=== PATIENT | male | born 1940 | race Caucasian/White ===

== ENCOUNTER 2017-06-24 09:02 | Day surgery (SDC) | payer MEDICARE ==
[2017-06-21 09:45] VITALS: BMI 22.6
[~2017-06-24 09:02] MED LIST: DEXAMETHASONE SOD PHOSPHATE 10 MG/ML 1 ML VIAL IV ONE; HEPARIN SODIUM,PORCINE 5,000 UNIT/ML 1 ML VIAL SQ ONE; HYDROmorphone 0.5 MG/0.5 ML SYRINGE IVP PRN; LIDOCAINE 1% 20 ML VIAL (10MG/ML) FOR IV START INTRADERMA PRN; MIDAZOLAM 2 MG/2 ML VIAL IV PRN; ONDANSETRON 4 MG/2 ML VIAL IVP ONE; Pre Op ABX Message 1 EACH MISC MISCELLANE ONE; SCOPOLAMINE 1.5MG/72HR PATCH TRANSDERM ONE
[2017-06-24 09:53] VITALS: TEMP 97.9
[2017-06-24] MEDS ORDERED: LIDOCAINE 1% 20 ML VIAL (10MG/ML) FOR IV START INTRADERMA ONE (10:07)
[2017-06-24] MEDS: LACTATED RINGERS 1,000 ML IV SCH ×2 (10:11→11:44)
--- NOTE | 2017-06-24 10:55 | P.GSHP ---
History of Present Illness H&P Date: 06/24/17 Chief Complaint: Right perianal skin lesion This is a 76-year-old male who presents today for excision of a right perianal skin lesion. Patient relates and itching and burning in his skin lesion. Past Medical History Past Medical History: GERD/Reflux, Hypertension Additional Past Medical History / Comment(s): sinus congestion History of Any Multi-Drug Resistant Organisms: None Reported Past Surgical History: Hernia Repair, Orthopedic Surgery Additional Past Surgical History / Comment(s): benign growth removed from stomach, colonoscopy, corrective eye surgery Saturnino. knee replacements Past Anesthesia/Blood Transfusion Reactions: No Reported Reaction Smoking Status: Former smoker - Past Family History Mother Family Medical History: No Reported History Medications and Allergies Home Medications Medication Instructions Recorded Confirmed Type Lisinopril-Hctz 10-12.5 mg 1 tab PO DAILY 06/21/17 06/21/17 History [Zestoretic 10-12.5] Pantoprazole [Protonix] 0 mg PO DAILY 06/21/17 06/21/17 History Simvastatin [Zocor] 20 mg PO HS 06/21/17 06/21/17 History diphenhydrAMINE HCL 50 mg PO DAILY PRN 06/21/17 06/24/17 History [Diphenhydramine HCl] traZODone HCL 50 mg PO HS 06/21/17 06/21/17 History Allergies Allergy/AdvReac Type Severity Reaction Status Date / Time No Known Allergies Allergy Verified 06/21/17 09:37 Surgical - Exam Vital Signs Temp Pulse Resp BP Pulse Ox 97.9 F 63 18 133/64 96 06/24/17 09:51 06/24/17 09:51 06/24/17 09:51 06/24/17 09:51 06/24/17 09:51 - General well developed, no distress - Eyes PERRL - ENT normal pinna - Neck no masses - Respiratory normal expansion - Cardiovascular Rhythm: regular - Abdomen Abdomen: soft, non tender - Rectum 7 mm right perianal skin lesion Assessment and Plan Assessment: Right perianal skin lesion. We'll perform excision.
[2017-06-24] MEDS ORDERED: fentaNYL (PF) 50 MCG/ML 2 ML AMP ONE (11:46)
[2017-06-24] MEDS ORDERED: PROPOFOL 10 MG/ML 20 ML VIAL IV ONE (11:46)
[2017-06-24] MEDS ORDERED: MIDAZOLAM 2 MG/2 ML VIAL ONE (11:46)
[2017-06-24] MEDS ORDERED: SODIUM CHLORIDE 0.9% 50 ML with ceFAZolin 1,000 MG IV ONE ×2 (11:56)
[2017-06-24] MEDS ORDERED: BUPIVACAIN-EPI 0.5%-1:200,000 30 ML VIAL SQ ONE ×2 (12:07)
--- NOTE | 2017-06-24 12:13 | P.OP ---
Date of Procedure: 06/24/17 Preoperative Diagnosis: Perianal skin lesion Postoperative Diagnosis: Perianal skin lesion Procedure(s) Performed: Excision of right perianal skin lesion Anesthesia: local Surgeon: Elder Turpin Pathology: other Condition: stable Disposition: PACU Description of Procedure: Patient's placed on the operating table in the prone position. He received IV sedation. His perineum was prepped and draped usual sterile fashion. The patient had a skin lesion on the right perianal area. This was anesthetized 1% local Xylocaine. Elliptical skin incision was made around the lesion and it was excised. The Bovie is using hemostasis. The skin was closed interrupted 3- 0 Monocryl suture. Patient was sent to recovery in stable condition.
[2017-06-24 12:22] VITALS: BP 114/55; PULSE 79; RESP 16
--- NOTE | 2017-07-01 09:11 | CDI ---
Dr. Harris An epidermal perianal cyst was excised from Mr Steve on 06/24/17. The size of the cyst excised is needed for proper reporting purposes. Please clarify: 0.5 cm -1.0 cm 1.1 - 2.0 cm 2.1 - 3.0 cm 3.1 - 4.0 cm Over 4.0 cm Please document your response in an addendum to your procedure note. Thank you for your time. BOBY Johnson If you have any questions, please contact Rain Hess, crm marketing manager, at [facility]
--- NOTE | 2017-07-04 07:58 | CDI ---
Dr. Turpin An epidermal perianal cyst was excised from Mr Steve on 06/24/17. The size of the cyst excised is needed for proper reporting purposes. Please clarify: 0.5 cm -1.0 cm 1.1 - 2.0 cm 2.1 - 3.0 cm 3.1 - 4.0 cm Over 4.0 cm Please document your response in an addendum to your procedure note. Thank you for your time. BOBY Johnson If you have any questions, please contact Rain Hess, coding assistant, at [facility]
--- NOTE | 2017-07-09 07:10 | CDI ---
Dr. Turpin An epidermal perianal cyst was excised from Mr Steve on 06/24/17. The size of the cyst excised is needed for proper reporting purposes. Please clarify: 0.5 cm -1.0 cm 1.1 - 2.0 cm 2.1 - 3.0 cm 3.1 - 4.0 cm Over 4.0 cm Please document your response in an addendum to your procedure note. Thank you for your time. BOBY Johnson If you have any questions, please contact Rain Hess, district operations manager, at [facility]
--- NOTE | 2017-07-17 14:57 | CDI ---
Dr. Turpin An epidermal perianal cyst was excised from Mr Steve on 06/24/17. The size of the cyst excised is needed for proper reporting purposes. Please clarify: 0.5 cm -1.0 cm 1.1 - 2.0 cm 2.1 - 3.0 cm 3.1 - 4.0 cm Over 4.0 cm Please document your response in an addendum to your procedure note. Thank you for your time. BOBY Johnson If you have any questions, please contact Rain Hess, manager validation, at [facility]
== END 2017-06-24 13:08 | disposition home or self-care (01) ==
LOC: OR 09:02
PROVIDERS: ATTEND Surgery
DX: L72.0 Epidermal cyst (principal); I10 Essential (primary) hypertension; E78.5 Hyperlipidemia, unspecified; K21.9 Gastro-esophageal reflux disease without esophagitis; Z87.891 Personal history of nicotine dependence; Z79.899 Other long term (current) drug therapy
CPT/HCPCS: 11402; 88304; J2250; J1644; J1100; J2405; J3010; J0690; J2704

== ENCOUNTER → 2017-07-08 | Outpatient (CLI) | payer MEDICARE ==
--- NOTE | 2017-07-08 13:01 | ECHOF ---
Referral Reason:R01.1 Murmur MEASUREMENTS -------- HEIGHT: 167.6 cm WEIGHT: 63.5 kg BP: 123/55 IVSd: 0.9 cm (0.6 - 1.1) LVIDd: 3.5 cm (3.9 - 5.3) LVPWd: 0.9 cm (0.6 - 1.1) IVSs: 1.5 cm LVIDs: 2.2 cm LVPWs: 1.6 cm LAESV Index (A-L): 16.35 ml/m Ao Diam: 2.9 cm (2.0 - 3.7) AV Cusp: 1.6 cm (1.5 - 2.6) LA Diam: 3.1 cm (2.7 - 3.8) MV EXCURSION: 10.759 mm (> 18.000) MV EF SLOPE: 88 mm/s (70 - 150) EPSS: 1.3 cm MV E Jose: 0.61 m/s MV DecT: 217 ms MV A Jose: 0.82 m/s MV E/A Ratio: 0.74 AV maxP.34 mmHg AV meanP.44 mmHg AR PHT: 383 ms RAP: 5.00 mmHg RVSP: 20.18 mmHg FINDINGS -------- Sinus rhythm. This was a technically good study. The left ventricular size is normal. Left ventricular wall thickness is normal. Overall left vent ricular systolic function is normal with, an EF between 55 - 60 %. The right ventricle is normal in size and function. The left atrium is normal in size. The right atrium is normal in size. Aortic valve is trileaflet and is moderately thickened. Trace amount of aortic regurgitation. Th ere is mild aortic stenosis present. Peak/mean gradient across the Aortic Valve is 22.34mmHg / 13.4 4mmHg. The mitral valve leaflets are mildly thickened. Mild mitral annular calcification present. Mild m itral regurgitation is present. Mild tricuspid regurgitation present. The right ventricular systolic pressure, as measured by Doppl er, is 20.18mmHg. Pulmonic valve appears structurally normal. The aortic root size is normal. The pericardium is normal. CONCLUSIONS -------- 1. Sinus rhythm. 2. This was a technically good study. 3. The left ventricular size is normal. 4. Left ventricular wall thickness is normal. 5. Overall left ventricular systolic function is normal with, an EF between 55 - 60 %. 6. The right ventricle is normal in size and function. 7. The left atrium is normal in size. 8. The right atrium is normal in size. 9. Aortic valve is trileaflet and is moderately thickened. 10. Trace amount of aortic regurgitation. 11. There is mild aortic stenosis present. 12. Peak/mean gradient across the Aortic Valve is 22.34mmHg / 13.44mmHg. 13. The mitral valve leaflets are mildly thickened. 14. Mild mitral annular calcification present. 15. Mild mitral regurgitation is present. 16. Mild tricuspid regurgitation present. 17. The right ventricular systolic pressure, as measured by Doppler, is 20.18mmHg. 18. Pulmonic valve appears structurally normal. 19. The aortic root size is normal. 20. The pericardium is normal. ESCALATOR MECHANIC: Sol Lopez RDCS
== END | disposition home or self-care (01) ==
LOC: RADECHMAIN 11:27
PROVIDERS: ATTEND Family Medicine
DX: I08.3 Combined rheumatic disorders of mitral, aortic and tricuspid valves (principal)
CPT/HCPCS: 93306

== ENCOUNTER 2018-03-13 06:54 | Day surgery (SDC) | payer MEDICARE ==
[2018-03-12 08:17] VITALS: BMI 22.6
[~2018-03-13 06:54] MED LIST changes: -DEXAMETHASONE SOD PHOSPHATE 10 MG/ML 1 ML VIAL IV ONE; -HEPARIN SODIUM,PORCINE 5,000 UNIT/ML 1 ML VIAL SQ ONE; -HYDROmorphone 0.5 MG/0.5 ML SYRINGE IVP PRN; +LACTATED RINGERS 1,000 ML IV SCH; -MIDAZOLAM 2 MG/2 ML VIAL IV PRN; -ONDANSETRON 4 MG/2 ML VIAL IVP ONE; -SCOPOLAMINE 1.5MG/72HR PATCH TRANSDERM ONE
[2018-03-13 07:12] VITALS: TEMP 98
[2018-03-13] MEDS ORDERED: PROPOFOL 10 MG/ML 20 ML VIAL IV ONE (07:44)
--- NOTE | 2018-03-13 07:57 | P.GSHP ---
History of Present Illness H&P Date: 03/13/18 Chief Complaint: GI bleed This is a 77-year-old male who presents today for colonoscopy. Patient has history of hemorrhoids. He's had rectal bleeding. Past Medical History Past Medical History: Hyperlipidemia, Hypertension, Osteoarthritis (OA) Additional Past Medical History / Comment(s): hx ulcer, loose stools, History of Any Multi-Drug Resistant Organisms: None Reported Past Surgical History: Hernia Repair, Joint Replacement Additional Past Surgical History / Comment(s): benign growth removed from stomach, colonoscopy, corrective eye surgery, Saturnino. knee replacements Past Anesthesia/Blood Transfusion Reactions: No Reported Reaction Smoking Status: Former smoker - Past Family History Mother Family Medical History: No Reported History Medications and Allergies Home Medications Medication Instructions Recorded Confirmed Type Lisinopril-Hctz 10-12.5 mg 1 tab PO DAILY 06/21/17 03/13/18 History [Zestoretic 10-12.5] Pantoprazole [Protonix] 40 mg PO DAILY 06/21/17 03/13/18 History Simvastatin [Zocor] 20 mg PO HS 06/21/17 03/13/18 History traZODone HCL 50 mg PO HS 06/21/17 03/13/18 History Calcium Carbonate [Calcium] 600 mg PO DAILY 03/12/18 03/13/18 History Cholecalciferol [Vitamin D3] 1,000 unit PO DAILY 03/12/18 03/13/18 History Multivitamins, Thera [Multivitamin 1 tab PO DAILY 03/12/18 03/13/18 History (formulary)] [place]-3 Fatty Acids/Fish Oil [Fish 1 each PO DAILY 03/12/18 03/13/18 History Oil 1,000 mg Softgel] Vitamin B Complex 1 each PO DAILY 03/12/18 03/13/18 History Vitamin E (Dl,Tocopheryl Acet) 400 unit PO DAILY 03/12/18 03/13/18 History [Vitamin E] Allergies Allergy/AdvReac Type Severity Reaction Status Date / Time No Known Allergies Allergy Verified 03/12/18 08:02 Surgical - Exam Vital Signs Temp Pulse Resp BP Pulse Ox 98.0 F 80 18 164/84 96 03/13/18 07:10 03/13/18 07:10 03/13/18 07:10 03/13/18 07:10 03/13/18 07:10 - General well developed, well nourished, no distress - Eyes PERRL - ENT normal pinna - Neck no masses - Respiratory normal expansion - Abdomen Abdomen: soft, non tender Assessment and Plan Assessment: GI bleed. We'll perform colonoscopy. We'll perform colonoscopy.
--- NOTE | 2018-03-13 08:14 | P.OP ---
Date of Procedure: 03/13/18 Preoperative Diagnosis: GI bleed Postoperative Diagnosis: Mild internal hemorrhoids Diverticulosis Procedure(s) Performed: Colonoscopy Anesthesia: MAC Surgeon: Elder Turpin Pathology: none sent Condition: stable Disposition: PACU Description of Procedure: Patient's placed on the endoscopy table in the lateral position. IV sedation. Digital rectal exam was performed which revealed a few internal hemorrhoids. The prostate was symmetric without nodules. Flexible colonoscope was then placed patient anus passed throughout the entire colon. The ileocecal valve was visualized. The cecum, ascending and transverse colon appeared normal. Scope was then brought back into the descending and sigmoid colon and there was moderate diverticular changes. There is no evidence of diverticulitis. Scope was then brought back the rectum and this appeared normal. Scope was withdrawn for anus and internal hemorrhage noted.
[2018-03-13] MEDS ORDERED: IV FLUID CONTINUATION 1,000 ML IV ONE (08:16)
[2018-03-13 08:31] VITALS: BP 143/77; PULSE 73; RESP 18
--- NOTE | 2018-03-17 01:27 | CDI ---
Outpatient Documentation Clarification Form Date: 03/17/2018 CDS/Regional Geodetic Advisor Name: Mary Kunz Phone: If any questions, call Genesis Hess Chopper Gun Operator at [phone] Patient Name: Bear Steve Admit Date: 03/13/2018 Discharge Date: 03/13/2018 ATTENTION: The [facility] Coding Staff appreciate your assistance in clarifying documentation. Please respond to the clarification below the line at the bottom and electronically sign. The [facility] Coding staff will review the response and follow-up if needed. Please note: Queries are made part of the Legal Health Record. If you have any questions, please contact the Chopper Gun Operator. Dear Elder Ingram In this encounter, indication for colonoscopy is GI bleeding. In post-operative diagnosis diverticulosis and internal hemorrhoids were mentioned. Based on your clinical opinion please document the underlying cause of GI bleeding. Thank you for your kind consideration. GUADALUPE
== END 2018-03-13 09:00 | disposition home or self-care (01) ==
LOC: ORWHC2ENDO 06:54
PROVIDERS: ATTEND Surgery
DX: K92.2 Gastrointestinal hemorrhage, unspecified (principal); K57.30 Diverticulosis of large intestine without perforation or abscess without bleeding; K64.8 Other hemorrhoids; E78.5 Hyperlipidemia, unspecified; I10 Essential (primary) hypertension; M19.90 Unspecified osteoarthritis, unspecified site; F39 Unspecified mood [affective] disorder; K21.9 Gastro-esophageal reflux disease without esophagitis; Z79.899 Other long term (current) drug therapy; Z87.891 Personal history of nicotine dependence; Z96.653 Presence of artificial knee joint, bilateral
CPT/HCPCS: 45378; J2704

== ENCOUNTER → 2022-05-25 | Outpatient (CLI) | payer MEDICARE ==
--- NOTE | 2022-05-26 10:26 | CT ---
EXAMINATION TYPE: CT abdomen w con CT DLP: 433.60 mGycm, Automated exposure control for dose reduction was used. DATE OF EXAM: 05/25/2022 5:06 PM COMPARISON: CT abdomen pelvis most recent from 03/08/2014 CLINICAL INDICATION:Male, 81 years old with history of R19.7 DIARRHEA, UNSPECIFIED; UPPER ABDOMINAL P AIN AND DIARRHEA TECHNIQUE: Axial CT of the abdomen . Sagittal and coronal reformats were created on a separate works tation. Contrast used:90 mL of Isovue 370 with IV Contrast, Oral contrast used: without Oral Contrast FINDINGS: LOWER CHEST: Aortic valve calcifications and coronary artery atherosclerosis. ABDOMEN LIVER: Diffusely hypoattenuating parenchyma. GALLBLADDER AND BILE DUCTS: Unremarkable. PANCREAS: Unremarkable. SPLEEN: Unremarkable. ADRENAL GLANDS: Unremarkable. KIDNEYS AND URETERS: Evidence of hydronephrosis left nonobstructing renal calculi. Bilateral renal cy sts. STOMACH AND BOWEL: No evidence of bowel obstruction. Scattered clonic diverticula present. PERITONEUM: No evidence of pneumoperitoneum or free fluid. VASCULATURE: No evidence of aortic aneurysm. Atherosclerosis of the arterial vasculature. MUSCULOSKELETAL: No acute osseous abnormalities, extensive degeneration changes of the spine with josé luis r complete vertebral body body loss of L1 anteriorly which was similar back in 2014. LYMPH NODES: No gross evidence for lymphadenopathy. SOFT TISSUE/ABDOMINAL WALL: Postsurgical change the ventral wall. IMPRESSION: 1. No evidence for acute intra-abdominal process. 2. Scattered clonic diverticula. 3. Nonobstructing left renal calculus. 4. Moderate Aortic valve calcifications and moderate coronary artery atherosclerosis.
== END | disposition home or self-care (01) ==
LOC: RADCTMAIN 14:31
PROVIDERS: ATTEND Family Medicine
DX: K57.30 Diverticulosis of large intestine without perforation or abscess without bleeding (principal); I25.10 Atherosclerotic heart disease of native coronary artery without angina pectoris
CPT/HCPCS: 82565; 84520; 74160; 36415; Q9967

== ENCOUNTER → 2023-08-23 | Outpatient (CLI) | payer OTHER ==
--- NOTE | 2023-08-23 14:51 | XR ---
EXAMINATION TYPE: XR shoulder complete RT DATE OF EXAM: 08/23/2023 12:43 PM CLINICAL INDICATION:Male, 83 years old with history of M25.511 PAIN IN RIGHT SHOULDER; [facility] COMPARISON: 08/23/2023. TECHNIQUE: XR shoulder complete RT; shoulder was examined in AP, internally rotated and scapular Y pr ojections. FINDINGS: No evidence of acute osseous pathology, joint dislocation, or soft tissue swelling. The remaining po rtions of the visualized chest are unremarkable. Mild degeneration changes of the left acromion, dis penelope clavicle with osteophyte formation. There is osteophyte formation of the glenoid and humeral head . There is joint space narrowing of glenohumeral joint IMPRESSION: 1. No acute osseous pathology. 2. 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
== END | disposition home or self-care (01) ==
LOC: RADXRMAIN 12:30
PROVIDERS: ATTEND Family Medicine
DX: M19.011 Primary osteoarthritis, right shoulder (principal)

== ENCOUNTER → 2023-09-09 | Outpatient (CLI) | payer MEDICARE ==
--- NOTE | 2023-09-15 16:52 | MR ---
EXAMINATION TYPE: MR shoulder RT wo con DATE OF EXAM: 09/09/2023 COMPARISON: Radiograph from 01/06/2024 HISTORY: 83-year-old male M12.81 Rt shoulder pain , Rot cuff tear TECHNIQUE: Multiplanar, multisequence imaging of the right shoulder is performed without contrast. FINDINGS: Nonvisualization of the intracapsular portion of the long head biceps tendon, likely torn and scarred down in the bicipital groove. No fibers of the subscapularis tendon are identified. Severe degenerative change at the acromioclavicular joint with joint space narrowing, bulky marginal. There is complete tear of both supraspinatus and infraspinatus tendons. The tendon is retracted by up to 7.5 cm to the level of the suprascapular notch. Secondary to joint instability with superior subluxation and pseudoarticular arthrosis with the under surface of the acromion. Prominent marginal spurring at the glenohumeral joint and mild to moderate diffuse cartilage thinning throughout various portions of the glenoid humeral joint. Diffusely degenerative and torn posterior labrum. Moderate volume of joint effusion contiguous with the subacromial/subdeltoid bursa. There is severe fatty atrophy of the subscapularis muscle belly, moderate of the infraspinatus muscle belly, and mild of the supraspinatus muscle belly. No Hill-Sachs deformity or os acromiale. No suspicious bone marrow replacement. IMPRESSION: 1. Massive full thickness rotator cuff tear involving the entire supraspinatus, infraspinatus, and pierre bscapularis tendons. Variable stump retraction up to 7.5 cm to the level of the suprascapular notch. 2. Secondary glenohumeral joint instability and moderate rotator cuff arthropathy 3. Long head biceps tendon appears to be torn and is probably scarred down in the bicipital groove. 4. Severe AC joint OA. 5. Severe fatty atrophy of the subscapularis muscle, moderate of the infraspinatus muscle, and mild o f the supraspinatus muscle.
== END | disposition home or self-care (01) ==
LOC: RADMRIMAIN 13:00
PROVIDERS: ATTEND Family Medicine
DX: M75.121 Complete rotator cuff tear or rupture of right shoulder, not specified as traumatic (principal); M19.011 Primary osteoarthritis, right shoulder; M67.813 Other specified disorders of tendon, right shoulder; M62.511 Muscle wasting and atrophy, not elsewhere classified, right shoulder

== ENCOUNTER → 2023-10-30 | Outpatient (CLI) | payer OTHER ==
[2023-10-30 12:33] LABS: Partial Thromboplastin Time 23.5 sec (22.0-30.0); Prothrombin Time 10.6 sec (10.0-12.5)
[2023-10-30 17:03] LABS: HCT 44.6 % (39.6-50.0); MCH 30.5 pg (27.0-32.0); MCHC 33.6 g/dL (32.0-37.0); MCV 90.8 FL (80.0-97.0); Mean Platelet Volume 11.2 FL (9.5-12.2); NRBC Per 100 WBC 0 X 10*3/uL (0.00-0.01); Platelet Count 179 X 10*3/uL (140-440); RBC 4.91 X 10*6/uL (4.40-5.60); RDW 11.7 % (11.5-14.5); WBC 6.41 X 10*3/uL (4.50-10.00)
[2023-10-30 17:26] LABS: ALT 14 U/L (10-49); AST 18 U/L (14-35); Albumin/Globulin Ratio 1.54 Ratio (1.60-3.17); Alkaline Phosphatase 68 U/L (41-126); Blood Urea Nitrogen 15.9 mg/dL (9.0-27.0); Calcium 9.1 mg/dL (8.7-10.3); Carbon Dioxide 30.1 mmol/L (21.6-31.8); Chloride 99 mmol/L (96-109); Globulin 2.6 g/dL (1.6-3.3); Glucose 109 mg/dL (70-110); Potassium 4.3 mmol/L (3.5-5.5); Sodium 139 mmol/L (135-145); Total Bilirubin 0.5 mg/dL (0.3-1.2); Total Protein 6.6 g/dL (6.2-8.2)
== END | disposition home or self-care (01) ==
LOC: LABPAT 10:37
PROVIDERS: ATTEND Orthopaedic Surgery Sports Medicine
DX: Z01.812 Encounter for preprocedural laboratory examination (principal); Z22.322 Carrier or suspected carrier of Methicillin resistant Staphylococcus aureus; M19.011 Primary osteoarthritis, right shoulder; I45.10 Unspecified right bundle-branch block
CPT/HCPCS: 36415; 80053; 85027; 85610; 85730; 87070; 93005

== ENCOUNTER 2023-11-21 05:34 | Observation (INO) | payer MEDICARE, OTHER ==
[~2023-11-21 05:34] MED LIST changes: -LACTATED RINGERS 1,000 ML IV SCH; -LIDOCAINE 1% 20 ML VIAL (10MG/ML) FOR IV START INTRADERMA PRN; -Pre Op ABX Message 1 EACH MISC MISCELLANE ONE; +TRANEXAMIC 1,000 MG/100ML-NACL 1,000 MG in SALINE 1 100ML.BAG IVPB PRN
[2023-11-21] MEDS: ACETAMINOPHEN TAB 500 MG TAB PO PRN (06:14)
[2023-11-21] MEDS: MELOXICAM 7.5 MG TAB PO PRN (06:14)
[2023-11-21] MEDS: GABAPENTIN 300 MG CAP PO PRN (06:14)
[2023-11-21] MEDS: LACTATED RINGERS 1,000 ML IV SCH ×2 (06:15→12:07)
[2023-11-21] MEDS: LIDOCAINE 1% (10MG/ML) FOR IV START INTRADERMA PRN (06:15)
[2023-11-21] MEDS: ONDANSETRON 4 MG/2 ML VIAL IVP PRN (06:25)
[2023-11-21] MEDS: DEXAMETHASONE SOD PHOSPHATE 4 MG/ML 1 ML VIAL IV ONE (06:25)
[2023-11-21] MEDS: fentaNYL (PF) 50 MCG/ML 2 ML AMP IVP ONE (06:41)
[2023-11-21] MEDS: MIDAZOLAM 2 MG/2 ML VIAL IVP ONE (06:41)
[2023-11-21] MEDS ORDERED: MIDAZOLAM 2 MG/2 ML VIAL IV PRN (07:00)
[2023-11-21] MEDS ORDERED: NEOSTIGMINE 1 MG/ML 10 ML VIAL ONE (07:06)
[2023-11-21] MEDS ORDERED: TRANEXAMIC 1,000 MG/100ML-NACL PREMIX BAG ONE (07:06)
[2023-11-21] MEDS ORDERED: ROPIVACAINE 5 MG/ML 30 ML VIAL ONE (07:06)
[2023-11-21] MEDS ORDERED: PHENYLEPHRINE 10 MG/ML VIAL ONE (07:06)
[2023-11-21] MEDS ORDERED: fentaNYL (PF) 50 MCG/ML 2 ML AMP ONE (07:06)
[2023-11-21] MEDS ORDERED: DEXAMETHASONE SOD PHOSPHATE 4 MG/ML 1 ML VIAL ONE (07:06)
[2023-11-21] MEDS ORDERED: GLYCOPYRROLATE 0.2 MG/ML 2 ML VIAL ONE (07:06)
[2023-11-21] MEDS ORDERED: LIDOCAINE 1% INJ 10MG/ML (20 ML MDV) ONE (07:06)
[2023-11-21] MEDS ORDERED: PROPOFOL 10 MG/ML 20 ML VIAL IV ONE (07:06)
[2023-11-21] MEDS: ceFAZolin 1,000 MG in SODIUM CHLORIDE 0.9% 1,000 ML IRRIGATION ONE (07:06)
[2023-11-21] MEDS ORDERED: SUCCINYLCHOLINE CHLORIDE 200 MG/10 ML VIAL IV ONE (07:06)
[2023-11-21] MEDS ORDERED: ROCURONIUM 10 MG/ML (5 ML VIAL) IV ONE (07:06)
--- NOTE | 2023-11-21 07:49 | P.ANPRN ---
Procedure Note - Anesthesia - Nerve Block Performed Right Interscalene Single Time Out Performed: Yes Date of Procedure: 11/21/23 Procedure Start Time: 06:41 Procedure Stop Time: 06:47 Location of Patient: PreOp Indication: Acute Post-Operative Pain, Requested by Surgeon Sedation Type: Sedate with meaningful contact maintained Preparation: Sterile Prep Position: Supine Needle Types: Pajunk Needle Gauge: 21 Ultrasound used to visualize needle placement: Yes Ultrasound used to observe medication spread: Yes Injectate: 0.5% Ropivacaine (see comment for volume) (Ropivacaine 0.5% 25 ml + 4 mg Dexamethasone) Blood Aspirated: No Pain Paresthesia on Injection Noted: No Resistance on Injection: Normal Image Stored and Saved: Yes Events: Uneventful and Well Tolerated
[2023-11-21] MEDS: VANCOMYCIN 1,000 MG VIAL MISCELLANE ONE (08:14)
[2023-11-21] MEDS: LACTATED RINGERS 1,000 ML IV ONE (08:36)
[2023-11-21] MEDS ORDERED: SENNOSIDES-DOCUSATE SODIUM 1 EACH TAB PO PRN (08:45)
[2023-11-21] MEDS ORDERED: HYDROmorphone 0.5 MG/0.5 ML SYRINGE IVP PRN ×2 (08:45)
[2023-11-21] MEDS ORDERED: ONDANSETRON 4 MG/2 ML VIAL IVP PRN (08:45)
[2023-11-21] MEDS ORDERED: METOCLOPRAMIDE 5 MG/ML 2 ML VIAL IVP PRN (08:45)
[2023-11-21] MEDS ORDERED: diphenhydrAMINE 25 MG CAP PO PRN (08:45)
[2023-11-21] MEDS: ENALAPRILAT 1.25 MG/ML 1 ML VIAL IV ONE (09:01)
[2023-11-21] MEDS: HYDROmorphone 0.5 MG/0.5 ML SYRINGE IVP PRN ×2 (09:06→22:12)
--- NOTE | 2023-11-21 10:03 | OP ---
OPERATIVE REPORT DATE OF SERVICE : 11/21/2023 REMOTE INPATIENT CODER: ANETTE Eason. PREOPERATIVE DIAGNOSIS: Right shoulder advanced rotator cuff arthropathy. POSTOPERATIVE DIAGNOSIS: Right shoulder advanced rotator cuff arthropathy. OPERATION: Right reverse total shoulder arthroplasty. ANESTHESIA: General. ESTIMATED BLOOD LOSS: 150 mL. DRAINS: None. COMPLICATIONS: None apparent. DISPOSITION: Postanesthesia care unit. INDICATIONS: Mr. Steve is a very pleasant 83-year-old male with longstanding right shoulder pain. Workup including x-rays and MRI revealed advanced rotator cuff arthropathy of the right shoulder. At this point, it was felt that he has failed conservative management and he would like to proceed with operative intervention. The risks of the procedure were discussed with him in detail. These risks include, but are not limited to risk of infection, nerve damage, bleeding, pain, instability in the shoulder, loosening implants, and deep infection. There was also small risk of deep vein thrombosis which could lead to fatal pulmonary embolism. The patient understood the risks. All of his questions with regard to the risks of procedure were answered to his satisfaction. Appropriate informed consent was obtained. DESCRIPTION OF PROCEDURE: The patient was identified in the preoperative holding area. Surgical site was marked by both the patient and myself. He was given 2 g of Ancef IV prophylactic purposes. He was then transported to the operative suite. He was placed supine on the operating room table. General anesthetic was then administered and dosed per the anesthesia department without apparent complication. Examination under anesthesia was then performed to the right shoulder. He had elevation to 100 degrees, external rotation at the side was to 20 degrees. The patient was then placed into the beach chair position, well-padded in preparation for surgery. Great care was taken to ensure that the cervical spine is in neutral alignment, well-padded, and maintained that way throughout the operative procedure. Great care was also taken to ensure that his legs were appropriately padded as well. The patient's right upper extremity was then prepped and draped in usual sterile fashion. Standard surgical pause undertaken to ensure that we were operating the correct site and appropriate preoperative antibiotics were given. All staff in room were in agreement and we proceeded. The acromion AC joint clavicle and coracoid were marked with surgical pen. A planned incision starting at the level of the clavicle and extending distally over the deltopectoral interval approximately 1 cm lateral to the coracoid was marked with a surgical pen. The incision was then made with a 10-blade scalpel. Dissection carried down sharply to the deltoid fascia. The deltopectoral interval was then identified at the level of clavicle. A small band retractor was then placed onto the proximal deltoid. I then released the deltoid fascia on the lateral aspect of the cephalic vein. The vein was preserved and left in its bed medially. The cephalic vein was protected throughout the entire case. I then identified the clavipectoral fascia. This was incised proximally to the level of the coracoacromial ligament. The coracoacromial ligament was left intact. I then used my finger to spread the interval between the conjoint tendon and the subscapularis. I felt for the axillary nerve which was readily palpable. I then cleared the subacromial subdeltoid spaces of bursal and scar tissue. I then utilized a brown retractor to hold the deltoid and expose the humeral head. I then proceeded to release, his humeral head was essentially completely devoid of any rotator cuff attachment. The supraspinatus, infraspinatus, and subscapularis were completely torn and chronically retracted from the humeral head. I then proceeded to release the anterior inferior shoulder capsule. This was released at the base of the coracoid and then out laterally. The capsular release extended distally in a lazy-S fashion, approximately 1 cm medial to the bicipital groove. I then continued to release the capsule along the inferior neck in a vertical fashion to approximately the 6 o'clock position. Great care was taken to ensure the capsule was always visualized as released as to avoid injuring the axillary nerve. I then brought a [employer] with the arm externally rotated and abducted. Continue to release the capsule inferomedially to approximately the 4 o'clock position. The inferior osteophytes were now removed as well. This was done with a rongeur. I then proceeded with preparation of the humerus. I removed the goat's saenz osteophytes. I then removed the subchondral plate from the superior aspect of the humeral head utilizing a large rongeur. I then used a starting reamer to gain access to the humeral canal. This was approximately 1 cm medial to the previous rotator cuff insertion, 1 cm posterior to the bicipital groove. I then prepared the humeral canal with hand reaming. I started with a 6 mm reamer and incrementally increased until firm resistance was encountered at 14 mm. The reamer handle was then left in place. Then utilized a humeral resection guide set at 30 degrees of retrotorsion. The cutting block was then set at the previous insertion of the rotator cuff. I then proceeded to osteotomize the humeral head with an oscillating saw. I removed the resection guide and then completed the osteotomy. I then proceeded with trial stem placement. I then broached incrementally up to a 14 mm broach. The 14 mm broach was then left in place. At this point, I inspected the joint. The long head of the biceps tendon had been chronically ruptured. A bone hook was then used to pull the humerus out laterally. I then inspected the joint for any loose bodies. There were not any loose bodies noted. The Bhattman retractor was then placed on the posterior glenoid rim. The arm was placed approximately 80 degrees of abduction and in slight flexion on the Gomez stand. I then proceeded to remove the hypertrophic labrum to definitively identify the actual glenoid. I then selected the size. I then utilized the reverse mini base plate guide. The pin was then placed in the center of the glenoid in approximately 10 degrees of inferior tilt. I then proceeded to ream the glenoid fossa. This was done with the mini base plate reamer. Reaming was done as minimal as possible as to preserve as much subchondral bone as possible. I then placed the real mini base plate. This was impacted over the pin into the glenoid. It was securely impacted. I then removed the pin. I then measured for the central screw. A 30-mm central screw was then placed. The screw had a good purchase in bone and I was able to rotate the scapula through the screwdriver when it was firmly seated. I then proceeded with placement of the peripheral locking screws. The inferior screw was a 25 mm screw. The anterior and posterior screws were 15 mm screws and the superior screw was a 20 mm locking screw. I then had the financial services representative open a 36-mm standard glenosphere. It was slightly offset inferiorly as to inferiorize the glenosphere slightly. The Diaz taper was dried and then the real glenosphere was impacted onto the base plate. It was very securely impacted. I then proceeded to trial with the real glenosphere. I first thoroughly irrigated the joint with sterile saline solution and antibiotic added via pulse lavage. I also utilized the IrriSept antiseptic solution at this point. I then trialed with a standard tray and standard poly. It was a slightly difficult reduction. The shoulder was very stable. The conjoint tendon was without any undue tension. I felt for the axillary nerve which was readily palpable and intact. The shoulder was very stable throughout a full range of motion and no impingement was noted. The shoulder was then carefully redislocated. Had removed the trial stem and trial tray. The wound was again thoroughly irrigated with sterile saline solution and antibiotic added via pulse lavage. I also utilized the IrriSept antiseptic solution again. I had the financial services representative open a [employer] size 14 mini stem, a standard tray, and a standard poly. The real stem was then impacted into the humeral canal in approximately 30 degrees of retrotorsion. The Diaz taper was dried and then the standard tray standard poly was then impacted onto the real stem. The shoulder was then again carefully relocate. Again, it was a mildly difficult reduction. It was very stable. It was stable throughout a full range of motion without any impingement. Again, the axillary nerve was felt and was readily palpable. The conjoint tendon was without undue tension. At this point in time, no further work was deemed necessary. The wound was again thoroughly irrigated with sterile saline solution with antibiotic added via pulse lavage. Again we utilized the IrriSept antiseptic solution. Approximately 500 mg of vancomycin powder was then placed deep. The deltopectoral interval was then provisionally closed with 0 Vicryl interrupted suture. The subcutaneous tissue was thoroughly irrigated. The remaining 500 mg of vancomycin powder was placed subcutaneously. The subcutaneous tissue was closed with 2-0 Vicryl interrupted suture and the skin was closed with a running 3-0 Quill suture. Dermabond was applied to the incision. A sterile dressing was applied and the patient's right upper extremity was placed into a standard sling. All sponge and needle counts were deemed correct prior to closure. The patient tolerated the procedure without apparent complication. He was transferred to recovery room in stable condition. MMODL / IJN: [id number] /
--- NOTE | 2023-11-21 10:32 | XR ---
EXAMINATION TYPE: XR shoulder limited RT DATE OF EXAM: 11/21/2023 9:28 AM CLINICAL INDICATION:Male, 83 years old with history of post op; [facility] COMPARISON: 08/23/2023 TECHNIQUE: XR shoulder limited RT; examined in AP projections. FINDINGS: Shoulder arthroplasty with hardware intact. Subcutaneous lucencies compatible with recent surgery. No evidence for fracture. Hardware appears in tact The remaining portions of the visualized chest are unremarkable. IMPRESSION: Post shoulder arthroplasty, hardware intact, No acute osseous pathology.
[2023-11-21] MEDS: ONDANSETRON 4 MG/2 ML VIAL IVP ONE (12:06)
[2023-11-21] MEDS ORDERED: TEMAZEPAM 15 MG CAP PO PRN (14:02)
[2023-11-21] MEDS: traZODone HCL 50 MG TAB PO SCH (19:46)
[2023-11-21] MEDS: HYDROcodone/APAP 7.5-325MG 1 EACH TAB PO PRN (19:46)
[2023-11-21] MEDS: ATORVASTATIN 10 MG TAB PO SCH (19:46)
[2023-11-22] MEDS: PANTOPRAZOLE 40 MG TABLET PO SCH (09:12)
[2023-11-22] MEDS: MULTIVITAMINS, THERA 1 EACH TAB PO SCH (09:12)
[2023-11-22] MEDS: LISINOPRIL-HCTZ 10-12.5 MG 1 EACH TAB PO SCH (09:12)
[2023-11-22 10:24] LABS: Basophils # (A) 0.02 X 10*3/uL (0.00-0.10); Basophils % (A) 0.2 %; Eosinophils # (A) 0.02 X 10*3/uL (0.04-0.35); Eosinophils % (A) 0.2 %; HCT 34.3 % (39.6-50.0); HGB 11.3 g/dL (13.0-17.0); Lymphocytes # (A) 2.03 X 10*3/uL (0.90-5.00); Lymphocytes % (A) 18.2 %; MCH 30.4 pg (27.0-32.0); MCHC 32.9 g/dL (32.0-37.0); MCV 92.2 FL (80.0-97.0); Mean Platelet Volume 11.7 FL (9.5-12.2); Monocytes # (A) 1.26 X 10*3/uL (0.20-1.00); Monocytes % (A) 11.3 %; NRBC Per 100 WBC 0 X 10*3/uL (0.00-0.01); Neutrophils # (A) 7.77 X 10*3/uL (1.80-7.70); Neutrophils % (A) 69.7 %; Platelet Count 149 X 10*3/uL (140-440); RBC 3.72 X 10*6/uL (4.40-5.60); RDW 11.8 % (11.5-14.5); WBC 11.15 X 10*3/uL (4.50-10.00)
[2023-11-22] MEDS: HYDROcodone/APAP 7.5-325MG 1 EACH TAB PO PRN (10:59)
--- NOTE | 2023-11-22 12:45 | P.CONS ---
History of Present Illness - Reason for Consult Consult date: 11/22/23 Medical management Requesting physician: Charles Cintron - Chief Complaint Right shoulder pain urinary retention - History of Present Illness The patient is an 83-year-old white male seen for right shoulder repair. He is seen postop day #1 pain is nominal today. No fever or chills. No significant chest pain or nausea or vomiting. Pain seems to be nominal at this time. He is lucid and has no disorientation. Past medical history includes hypertension. Per lipidemia with reflux esophagitis. Review of Systems Constitutional: Denies chills, Denies fever Eyes: denies blurred vision, denies pain Ears, nose, mouth and throat: Denies headache, Denies sore throat Cardiovascular: Denies chest pain, Denies shortness of breath Respiratory: Denies cough Gastrointestinal: Denies abdominal pain, Denies diarrhea, Denies nausea, Denies vomiting Genitourinary: Reports urinary retention Musculoskeletal: Denies myalgias Past Medical History Past Medical History: Cancer, GERD/Reflux, Hyperlipidemia, Hypertension, Musculoskeletal Disorder, Osteoarthritis (OA) Additional Past Medical History / Comment(s): hx ulcer, skin cancer History of Any Multi-Drug Resistant Organisms: None Reported Past Surgical History: Hernia Repair, Joint Replacement Additional Past Surgical History / Comment(s): benign growth removed from sto mach, colonoscopy, corrective eye surgery, Saturnino. knee replacements Past Anesthesia/Blood Transfusion Reactions: No Reported Reaction Smoking Status: Never smoker - Past Family History Mother Family Medical History: No Reported History Medications and Allergies Home Medications Medication Instructions Recorded Confirmed Type Lisinopril-Hctz 10-12.5 mg 1 tab PO DAILY 06/21/17 11/14/23 History [Zestoretic 10-12.5] Pantoprazole [Protonix] 40 mg PO DAILY 06/21/17 11/14/23 History Simvastatin [Zocor] 20 mg PO HS 06/21/17 11/14/23 History traZODone HCL 50 mg PO HS 06/21/17 11/14/23 History Multivitamins, Thera [Multivitamin 1 tab PO DAILY 03/12/18 11/14/23 History (formulary)] Casco-3 Fatty Acids/Fish Oil [Fish 1 each PO DAILY 03/12/18 11/14/23 History Oil 1,000 mg Softgel] Temazepam [Restoril] 15 mg PO HS PRN 11/14/23 11/14/23 History Allergies Allergy/AdvReac Type Severity Reaction Status Date / Time No Known Allergies Allergy Verified 11/21/23 13:09 Physical Exam Vitals: Vital Signs Temp Pulse Pulse Resp BP BP Pulse Ox 11/22/23 08:00 98.9 F 82 15 151/68 93 L 11/22/23 02:00 98.3 F 85 18 158/81 95 11/21/23 20:00 98.3 F 98 16 132/71 94 L 11/21/23 19:42 98.3 F 98 16 132/71 94 L 11/21/23 15:47 98.1 F 100 14 124/61 92 L 11/21/23 14:00 98.2 F 92 17 127/81 96 Intake and Output 11/21/23 11/22/23 11/22/23 22:59 06:59 14:59 Intake Total 100 Output Total 1347 600 550 Balance -1247 -600 -550 Intake: IV 100 Invasive Line 1 100 Output: Urine 700 600 550 Straight 700 600 550 Post Void Residual 647 Other: Voiding Method Urinal # Voids 1 - Constitutional General appearance: cooperative, no acute distress - EENT Eyes: EOMI - Neck Neck: no lymphadenopathy - Respiratory Respiratory: bilateral: diminished - Cardiovascular Rhythm: regular Heart sounds: normal: S1, S2 Abnormal Heart Sounds: no S3 Gallop - Gastrointestinal General gastrointestinal: soft, no tenderness - Integumentary Integumentary: normal - Psychiatric Psychiatric: A&O x's 3, appropriate affect, intact judgment & insight Results CBC & Chem 7: 11/22/23 07:17 Labs: Abnormal Lab Results - Last 24 Hours (Table) 11/22/23 Range/Units 07:17 WBC 11.15 H (4.50-10.00) X 10*3/uL RBC 3.72 L (4.40-5.60) X 10*6/uL Hgb 11.3 L (13.0-17.0) g/dL Hct 34.3 L (39.6-50.0) % Immature Gran # 0.05 H (0.00-0.04) X 10*3/uL Neutrophils # 7.77 H (1.80-7.70) X 10*3/uL Monocytes # 1.26 H (0.20-1.00) X 10*3/uL Eosinophils # 0.02 L (0.04-0.35) X 10*3/uL Assessment and Plan (1) Arthropathy of right shoulder Current Visit: Yes Status: Acute Code(s): M19.011 - PRIMARY OSTEOARTHRITIS, RIGHT SHOULDER SNOMED Code(s): 21570183238902434 (2) GERD (gastroesophageal reflux disease) Current Visit: Yes Status: Acute Code(s): K21.9 - GASTRO-ESOPHAGEAL REFLUX DISEASE WITHOUT ESOPHAGITIS SNOMED Code(s): 364631976 (3) Essential (primary) hypertension Current Visit: Yes Status: Acute Code(s): I10 - ESSENTIAL (PRIMARY) HYPERTENSION SNOMED Code(s): 00489483 (4) Pure hypercholesterolemia Current Visit: Yes Status: Acute Code(s): E78.00 - PURE HYPERCHOLESTEROLEMIA, UNSPECIFIED SNOMED Code(s): 231073182 Plan: Reconcile home medications. Postop protocol for urinary retention instituted. Check CBC and CMP in AM. Anticipate discharge in the next 24 hours. Time with Patient: Greater than 30
--- NOTE | 2023-11-22 13:26 | P.PN ---
Subjective Progress Note Date: 11/22/23 Principal diagnosis: Right TSA Patient is seen at bedside this morning. He is postop day #1 from reverse right total shoulder arthroplasty. He has pain at the surgical site as expected. He is having some urinary retention and catheter is in place. He denies any new complaints. He denies numbness, tingling or calf pain. Review of systems is negative for fever, chills, chest pain, shortness of breath or other Objective - Vital Signs Vital signs: Vital Signs Temp 98.9 F 11/22/23 08:00 Pulse 82 11/22/23 08:00 Resp 15 11/22/23 08:00 BP 151/68 11/22/23 08:00 Pulse Ox 93 L 11/22/23 08:00 FiO2 Intake & Output 11/21/23 11/22/23 11/22/23 18:59 06:59 18:59 Intake Total 851 Output Total 150 1947 550 Balance 701 -1947 -550 Weight 62.1 kg Intake: IV 851 Invasive Line 1 100 Output: Urine 1300 550 Straight 1300 550 Post Void Residual 647 Estimated Blood Loss 150 Other: Voiding Method Urinal # Voids 1 - Exam Inspection reveals a benign surgical wound. There is no active bleeding or drainage. Neurovascular status is intact throughout the upper extremity with motor and sensation fully intact. Calf is soft and nontender. 2+ radial pulse and less than 2 second cap refill is present. - Constitutional General appearance: Present: no acute distress - Labs CBC & Chem 7: 11/22/23 07:17 Labs: Abnormal Lab Results - Last 24 Hours (Table) 11/22/23 Range/Units 07:17 WBC 11.15 H (4.50-10.00) X 10*3/uL RBC 3.72 L (4.40-5.60) X 10*6/uL Hgb 11.3 L (13.0-17.0) g/dL Hct 34.3 L (39.6-50.0) % Immature Gran # 0.05 H (0.00-0.04) X 10*3/uL Neutrophils # 7.77 H (1.80-7.70) X 10*3/uL Monocytes # 1.26 H (0.20-1.00) X 10*3/uL Eosinophils # 0.02 L (0.04-0.35) X 10*3/uL Assessment and Plan (1) Arthropathy of right shoulder Narrative/Plan: He will continue with routine postop orthopedic protocol including pain management, wound care, DVT prophylaxis and medical management and request recommendations regarding urinary retention. Expect that he will transfer to home tomorrow Current Visit: Yes Status: Acute Code(s): M19.011 - PRIMARY OSTEOARTHRITIS, RIGHT SHOULDER SNOMED Code(s): 23581134245646697 Time with Patient: Less than 30
--- NOTE | 2023-11-23 12:16 | P.PN ---
Subjective Progress Note Date: 11/23/23 Principal diagnosis: Right TSA Patient is seen at bedside this morning. He is postop day #2 from reverse right total shoulder arthroplasty. He has pain at the surgical site as expected. He continues with catheter is in place due to retention. He denies any new complaints. He denies numbness, tingling or calf pain. Review of systems is negative for fever, chills, chest pain, shortness of breath or other Objective - Vital Signs Vital signs: Vital Signs Temp 98.9 F 11/23/23 07:25 Pulse 88 11/23/23 07:25 Resp 17 11/23/23 07:25 BP 157/66 11/23/23 07:25 Pulse Ox 96 11/23/23 07:25 FiO2 Intake & Output 11/22/23 11/23/23 11/23/23 18:59 06:59 18:59 Output Total 1999 1450 Balance -1999 -1450 Output: Urine 1999 1450 Straight 550 Other: Voiding Method Indwelling Catheter Indwelling Catheter - Exam Inspection reveals a benign surgical wound. There is no active bleeding or drainage. Neurovascular status is intact throughout the upper extremity with motor and sensation fully intact. Calf is soft and nontender. 2+ radial pulse and less than 2 second cap refill is present. - Constitutional General appearance: Present: no acute distress - Labs CBC & Chem 7: 11/22/23 07:17 Assessment and Plan (1) Arthropathy of right shoulder Narrative/Plan: He will continue with routine postop orthopedic protocol including pain management, wound care, DVT prophylaxis and medical management. I have ordered Flomax and will try to D/C catheter. Expect that he will transfer to home tomorrow Current Visit: Yes Status: Acute Code(s): M19.011 - PRIMARY OSTEOARTHRITIS, RIGHT SHOULDER SNOMED Code(s): 87138308739644909 Time with Patient: Less than 30
--- NOTE | 2023-11-23 13:02 | P.PN ---
Subjective Progress Note Date: 11/23/23 The patient is an 83-year-old white male seen for right shoulder repair. He is seen postop day #1 . No fever or chills. No significant chest pain or nausea or vomiting. Pain seems to be nominal at this time. He is lucid and has no disorientation. Past medical history includes hypertension. Per lipidemia with reflux esophagitis. 11/22 patient seen and examined. Patient is s/p reverse right total shoulder arthroplasty. Stated pain has improved. Patient had a Walls placed secondary to urine retention, started Flomax. REVIEW OF SYSTEMS: CONSTITUTIONAL: No fever, no malaise,. CARDIOVASCULAR: No chest pain, no palpitations, no syncope. PULMONARY: No shortness of breath, no cough, GASTROINTESTINAL: No diarrhea, no nausea, no vomiting, no abdominal pain. NEUROLOGICAL: No headaches, no weakness, PHYSICAL EXAMINATION: GENERAL: The patient is alert and oriented x3, not in any acute distress. Well developed, well nourished. HEENT: Pupils are round and equally reacting to light. EOMI. No scleral icterus. No conjunctival pallor. Normocephalic, atraumatic. No pharyngeal erythema. No thyromegaly. CARDIOVASCULAR: S1 and S2 present. No murmurs, rubs, or gallops. PULMONARY: Chest is clear to auscultation, no wheezing or crackles. ABDOMEN: Soft, nontender, nondistended, normoactive bowel sounds. No palpable organomegaly. MUSCULOSKELETAL: Right shoulder surgical incision seen EXTREMITIES: No cyanosis, clubbing, or pedal edema. NEUROLOGICAL: Gross neurological examination did not reveal any focal deficits. SKIN: No rashes. Assessment and plan Arthroplasty of right shoulder GERD Hypertension Hypercholesterolemia Urine retention S/preverse right total shoulder arthroplasty Continue pain management per orthopedics Continue DVT prophylaxis per orthopedics Continue bladder management protocol, continue Flomax DC Walls Resume home meds PT and OT consulted Labs and medication were reviewed.. Continue same treatment. Continue with symptomatic treatment. Resume home medication. Monitor labs and vitals. DVT and GI prophylaxis. Further recommendations as per clinical course of the patient Dictation was produced using [employer] dictation software. please excuse any gra mmatical, word or spelling errors. Objective - Vital Signs Vital signs: Vital Signs Temp 98.9 F 11/23/23 07:25 Pulse 88 11/23/23 07:25 Resp 17 11/23/23 07:25 BP 157/66 11/23/23 07:25 Pulse Ox 96 11/23/23 07:25 FiO2 Intake & Output 11/22/23 11/23/23 11/23/23 18:59 06:59 18:59 Output Total 1999 1450 Balance -1999145 Output: Urine 1999 1450 Straight 550 Other: Voiding Method Indwelling Catheter Indwelling Catheter - Labs CBC & Chem 7: 11/22/23 07:17 Labs: Abnormal Lab Results - Last 24 Hours (Table) 11/22/23 Range/Units 07:17 WBC 11.15 H (4.50-10.00) X 10*3/uL RBC 3.72 L (4.40-5.60) X 10*6/uL Hgb 11.3 L (13.0-17.0) g/dL Hct 34.3 L (39.6-50.0) % Immature Gran # 0.05 H (0.00-0.04) X 10*3/uL Neutrophils # 7.77 H (1.80-7.70) X 10*3/uL Monocytes # 1.26 H (0.20-1.00) X 10*3/uL Eosinophils # 0.02 L (0.04-0.35) X 10*3/uL
[2023-11-23] MEDS: TAMSULOSIN 0.4 MG CAP.ER.24H PO SCH (15:06)
--- NOTE | 2023-11-24 12:45 | P.PN ---
Subjective Progress Note Date: 11/24/23 The patient is an 83-year-old white male seen for right shoulder repair. He is seen postop day #1 . No fever or chills. No significant chest pain or nausea or vomiting. Pain seems to be nominal at this time. He is lucid and has no disorientation. Past medical history includes hypertension. Per lipidemia with reflux esophagitis. 11/22 patient seen and examined. Patient is s/p reverse right total shoulder arthroplasty. Stated pain has improved. Patient had a Walls placed secondary to urine retention, started Flomax. 11/23. Patient seen and examined. Currently on Flomax. Pain controlled with p ain medications. REVIEW OF SYSTEMS: CONSTITUTIONAL: No fever, no malaise,. CARDIOVASCULAR: No chest pain, no palpitations, no syncope. PULMONARY: No shortness of breath, no cough, GASTROINTESTINAL: No diarrhea, no nausea, no vomiting, no abdominal pain. NEUROLOGICAL: No headaches, no weakness, PHYSICAL EXAMINATION: GENERAL: The patient is alert and oriented x3, not in any acute distress. Well developed, well nourished. HEENT: Pupils are round and equally reacting to light. EOMI. No scleral icterus. No conjunctival pallor. Normocephalic, atraumatic. No pharyngeal erythema. No thyromegaly. CARDIOVASCULAR: S1 and S2 present. No murmurs, rubs, or gallops. PULMONARY: Chest is clear to auscultation, no wheezing or crackles. ABDOMEN: Soft, nontender, nondistended, normoactive bowel sounds. No palpable organomegaly. MUSCULOSKELETAL: Right shoulder surgical incision seen, sling seen EXTREMITIES: No cyanosis, clubbing, or pedal edema. NEUROLOGICAL: Gross neurological examination did not reveal any focal deficits. SKIN: No rashes. Assessment and plan Arthroplasty of right shoulder GERD Hypertension Hypercholesterolemia Urine retention S/preverse right total shoulder arthroplasty Continue pain management per orthopedics Continue DVT prophylaxis per orthopedics Continue bladder management protocol, continue Flomax Continue home meds PT and OT following Labs and medication were reviewed.. Continue same treatment. Continue with symptomatic treatment. Resume home medication. Monitor labs and vitals. DVT and GI prophylaxis. Further recommendations as per clinical course of the patient Dictation was produced using [email or web address] dictation software. please excuse any gr ammatical, word or spelling errors. Objective - Vital Signs Vital signs: Vital Signs Temp 97.4 F L 11/24/23 07:43 Pulse 102 H 11/24/23 07:43 Resp 17 11/24/23 07:43 BP 151/74 11/24/23 07:43 Pulse Ox 93 L 11/24/23 07:43 FiO2 Intake & Output 11/23/23 11/24/23 11/24/23 18:59 06:59 18:59 Output Total 600 200 Balance -600 -200 Output: Urine 600 200 Other: # Voids 4 - Labs CBC & Chem 7: 11/22/23 07:17
--- NOTE | 2023-11-24 12:56 | P.DS ---
Providers Date of admission: 11/22/23 13:35 Expected date of discharge: 11/24/23 Attending physician: Charles Cintron Consults: 11/21/23 08:45 Consult Physician Routine Consulting Provider: Wily Tse Consult Reason/Comments: post op medical management Do you want consulting provider notified?: Yes Primary care physician: Wily Tse - Discharge Diagnosis(es) (1) Arthropathy of right shoulder Patient was admitted to the OR on 11/21/23 to undergo a reverse right total shoulder arthroplasty. He had failed conservative measures as an outpatient and desired to proceed with elective surgery after given informed consent. He underwent the above procedure which he tolerated well without complication. Postoperative hospital course has remained without complication. On day of discharge he is afebrile, vital signs stable, labs within acceptable ranges, tolerating by mouth meds and diet, voiding without difficulty, positive flatus, denies abdominal pain or calf pain, pain is controlled on oral pain medication and has no new complaints. Wound is benign, neurovascular status is intact, calf is soft and nontender, abdomen soft and nontender. Review of systems is negative for numbness, tingling, fever, chills, chest pain, shortness of breath, nausea, vomiting, dizziness, headaches, slurred speech or other. Current Visit: Yes Status: Acute Priority: Medium Procedures: Reverse Right TSA Patient Condition at Discharge: Good Plan - Discharge Summary Discharge Rx Participant: Yes New Discharge Prescriptions: New Docusate [Colace] 100 mg PO BID #60 capsule Tamsulosin [Flomax] 0.4 mg PO PC-BRKFST #15 cap Doxycycline Hyclate 100 mg PO BID #10 tab Ondansetron [Zofran] 4 mg PO Q8HR PRN #21 tab PRN Reason: Nausea HYDROcodone/APAP 7.5-325MG [[place] 7.5-325] 1 each PO Q4H PRN #42 tab PRN Reason: Pain Continue Lisinopril-Hctz 10-12.5 mg [Zestoretic 10-12.5] 1 tab PO DAILY traZODone HCL 50 mg PO HS Simvastatin [Zocor] 20 mg PO HS Pantoprazole [Protonix] 40 mg PO DAILY Multivitamins, Thera [Multivitamin (formulary)] 1 tab PO DAILY [place]-3 Fatty Acids/Fish Oil [Fish Oil 1,000 mg Softgel] 1 each PO DAILY Temazepam [Restoril] 15 mg PO HS PRN PRN Reason: Insomnia Discharge Medication List Lisinopril-Hctz 10-12.5 mg [Zestoretic 10-12.5] 1 tab PO DAILY 06/21/17 [His tory] Pantoprazole [Protonix] 40 mg PO DAILY 06/21/17 [History] Simvastatin [Zocor] 20 mg PO HS 06/21/17 [History] traZODone HCL 50 mg PO HS 06/21/17 [History] Multivitamins, Thera [Multivitamin (formulary)] 1 tab PO DAILY 03/12/18 [History] [place]-3 Fatty Acids/Fish Oil [Fish Oil 1,000 mg Softgel] 1 each PO DAILY 03/12/18 [History] Temazepam [Restoril] 15 mg PO HS PRN 11/14/23 [History] Docusate [Colace] 100 mg PO BID #60 capsule 11/22/23 [Rx] Doxycycline Hyclate 100 mg PO BID #10 tab 11/22/23 [Rx] HYDROcodone/APAP 7.5-325MG [[place] 7.5-325] 1 each PO Q4H PRN #42 tab 11/22/23 [Rx] Ondansetron [Zofran] 4 mg PO Q8HR PRN #21 tab 11/22/23 [Rx] Tamsulosin [Flomax] 0.4 mg PO PC-BRKFST #15 cap 11/23/23 [Rx] Follow up Appointment(s)/Referral(s): Charles Cintron MD [STAFF PHYSICIAN] - 10 Days Activity/Diet/Wound Care/Special Instructions: maintain sling keep wound clean and dry take meds as directed f/u in office may shower in 3 days if no bleeding Discharge Disposition: HOME SELF-CARE
--- NOTE | 2023-11-25 08:19 | P.PN ---
Subjective Progress Note Date: 11/25/23 Principal diagnosis: Right total shoulder arthroplasty This is an 83-year-old male who was admitted last week for right total shoulder arthroplasty with Dr. Cintron. The plan was for patient to be discharged yesterday however he had some hypotension. Patient seen and examined this morning sitting up in bed. He is anxious to go home. Blood pressure has been stable. He has been urinating regularly. He is tolerating diet. Objective - Vital Signs Vital signs: Vital Signs Temp 98.7 F 11/25/23 07:43 Pulse 100 11/25/23 07:43 Resp 16 11/25/23 07:43 BP 144/72 11/25/23 07:43 Pulse Ox 90 L 11/25/23 07:43 FiO2 Intake & Output 11/24/23 11/25/23 11/25/23 18:59 06:59 18:59 Output Total 400 500 Balance -400 -500 Output: Urine 400 500 Other: Voiding Method Urinal # Voids 2 - Constitutional General appearance: Present: cooperative, no acute distress - EENT Eyes: Present: PERRLA - Neck Neck: Present: normal ROM. Absent: lymphadenopathy, rigidity - Respiratory Respiratory: bilateral: CTA - Cardiovascular Rhythm: regular Heart sounds: normal: S1, S2 - Gastrointestinal General gastrointestinal: Present: soft. Absent: tenderness - Integumentary Integumentary: Present: normal, normal turgor - Musculoskeletal Musculoskeletal Comment(s): right arm sling - Psychiatric Psychiatric: Present: A&O x's 3, appropriate affect, intact judgment & insight - Labs CBC & Chem 7: 11/22/23 07:17 Assessment and Plan (1) Arthropathy of right shoulder Current Visit: Yes Status: Acute Priority: Medium Code(s): M19.011 - PRIMARY OSTEOARTHRITIS, RIGHT SHOULDER SNOMED Code(s): 29442422927777453 (2) Essential (primary) hypertension Current Visit: Yes Status: Acute Code(s): I10 - ESSENTIAL (PRIMARY) HYPERTENSION SNOMED Code(s): 59705255 (3) GERD (gastroesophageal reflux disease) Current Visit: Yes Status: Acute Code(s): K21.9 - GASTRO-ESOPHAGEAL REFLUX DISEASE WITHOUT ESOPHAGITIS SNOMED Code(s): 541146133 (4) Pure hypercholesterolemia Current Visit: Yes Status: Acute Code(s): E78.00 - PURE HYPERCHOLESTEROLEMIA, UNSPECIFIED SNOMED Code(s): 137750001 Plan: Patient may be discharged from medical standpoint. Follow-up in our office in 1 week Patient seen and evaluated by nurse practitioner, physician in agreement with plan
[2023-11-25 08:43] VITALS: BP 144/72; PULSE 100; RESP 16; TEMP 98.7
--- NOTE | 2023-11-25 11:44 | P.PN ---
Subjective Progress Note Date: 11/25/23 Principal diagnosis: Right TSA Patient is seen at bedside this morning. He is postop day #4 from reverse right total shoulder arthroplasty. He has pain at the surgical site as expected. he is able to void now. He is more alert. He denies any new complaints. He denies numbness, tingling or calf pain. Review of systems is negative for fever, chills, chest pain, shortness of breath or other Objective - Vital Signs Vital signs: Vital Signs Temp 98.7 F 11/25/23 07:43 Pulse 100 11/25/23 07:43 Resp 16 11/25/23 08:00 BP 144/72 11/25/23 07:43 Pulse Ox 90 L 11/25/23 07:43 FiO2 Intake & Output 11/24/23 11/25/23 11/25/23 18:59 06:59 18:59 Output Total 400 500 Balance -400 -500 Output: Urine 400 500 Other: Voiding Method Urinal Toilet # Voids 2 - Exam Inspection reveals a benign surgical wound. There is no active bleeding or drainage. Neurovascular status is intact throughout the upper extremity with m otor and sensation fully intact. Calf is soft and nontender. 2+ radial pulse and less than 2 second cap refill is present. - Labs CBC & Chem 7: 11/22/23 07:17 Assessment and Plan (1) Arthropathy of right shoulder Narrative/Plan: He will D/C to home with home health today. I advised on medication precautions, restrictions and f/u in office. Current Visit: Yes Status: Acute Priority: Medium Code(s): M19.011 - PRIMARY OSTEOARTHRITIS, RIGHT SHOULDER SNOMED Code(s): 23076109459757493 Time with Patient: Less than 30
== END 2023-11-25 12:18 | disposition home health service (06) ==
LOC: OR 05:34 → 4SSUR 08:36 → OR 11-22 13:35
PROVIDERS: ADMIT Orthopaedic Surgery Sports Medicine; ATTEND Orthopaedic Surgery Sports Medicine
DX: M19.011 Primary osteoarthritis, right shoulder (principal); R33.9 Retention of urine, unspecified; I95.9 Hypotension, unspecified; I10 Essential (primary) hypertension; K21.00 Gastro-esophageal reflux disease with esophagitis, without bleeding; E78.00 Pure hypercholesterolemia, unspecified; F51.01 Primary insomnia; Z79.899 Other long term (current) drug therapy; Z96.653 Presence of artificial knee joint, bilateral; Z98.890 Other specified postprocedural states
CPT/HCPCS: 97161; 64415; 85025; 73020; 23472; G0378 ×4; C1776; J2250; J3370; J1100; J0690 ×2; J2405; J3010; J1170 ×3

== ENCOUNTER 2023-12-07 15:01 | Emergency (ER) | payer MEDICARE ==
--- NOTE | 2023-12-07 15:44 | ED ---
Abdominal Pain HPI - General Chief Complaint: Abdominal Pain Stated Complaint: Urogenital Time Seen by Provider: 12/07/23 15:15 Source: patient, RN notes reviewed Mode of arrival: wheelchair Limitations: no limitations - History of Present Illness Initial Comments: 83-year-old male presenting with abdominal pain x 2 weeks. Patient states he has been struggling with constipation since his shoulder surgery 2 weeks ago. Patient takes [place] for pain since the surgery. Patient states he has been having small, hard stools every few days with a small amount of diarrhea. Patient states the abdominal pain is in the lower abdomen and bilateral and believes it is due to the constipation. Patient saw surgeon yesterday who prescribed stool softeners and MiraLAX. Patient is here because he feels like his symptoms are not improving. Last bowel movement was this morning but was hard and only a small amount. Denies nausea, vomiting, fever, dysuria, urinary frequency. Denies previous abdominal surgeries - Related Data Home Medications Medication Instructions Recorded Confirmed Lisinopril-Hctz 10-12.5 mg 1 tab PO DAILY 06/21/17 11/14/23 [Zestoretic 10-12.5] Pantoprazole [Protonix] 40 mg PO DAILY 06/21/17 11/14/23 Simvastatin [Zocor] 20 mg PO HS 06/21/17 11/14/23 traZODone HCL 50 mg PO HS 06/21/17 11/14/23 Multivitamins, Thera [Multivitamin 1 tab PO DAILY 03/12/18 11/14/23 (formulary)] [place]-3 Fatty Acids/Fish Oil [Fish 1 each PO DAILY 03/12/18 11/14/23 Oil 1,000 mg Softgel] Temazepam [Restoril] 15 mg PO HS PRN 11/14/23 11/14/23 Previous Rx's Medication Instructions Recorded Docusate [Colace] 100 mg PO BID #60 capsule 11/22/23 Doxycycline Hyclate 100 mg PO BID #10 tab 11/22/23 HYDROcodone/APAP 7.5-325MG [[place] 1 each PO Q4H PRN #42 tab 11/22/23 7.5-325] Ondansetron [Zofran] 4 mg PO Q8HR PRN #21 tab 11/22/23 Tamsulosin [Flomax] 0.4 mg PO PC-BRKFST #15 cap 11/23/23 Allergies Allergy/AdvReac Type Severity Reaction Status Date / Time No Known Allergies Allergy Verified 12/07/23 15:13 Review of Systems ROS Statement: Those systems with pertinent positive or pertinent negative responses have been documented in the HPI. ROS Other: All systems not noted in ROS Statement are negative. Past Medical History Past Medical History: Cancer, GERD/Reflux, Hyperlipidemia, Hypertension, Musc uloskeletal Disorder, Osteoarthritis (OA) Additional Past Medical History / Comment(s): hx ulcer, skin cancer History of Any Multi-Drug Resistant Organisms: None Reported Past Surgical History: Hernia Repair, Joint Replacement Additional Past Surgical History / Comment(s): benign growth removed from stomach, colonoscopy, corrective eye surgery, [place]. knee replacements Past Anesthesia/Blood Transfusion Reactions: No Reported Reaction Past Psychological History: No Psychological Hx Reported Smoking Status: Never smoker Past Alcohol Use History: None Reported Past Drug Use History: None Reported - Past Family History Mother Family Medical History: No Reported History General Exam Limitations: no limitations General appearance: alert, in no apparent distress Respiratory exam: Present: normal lung sounds bilaterally. Absent: respiratory distress, wheezes, rales, rhonchi, stridor Cardiovascular Exam: Present: regular rate, normal rhythm, normal heart sounds. Absent: systolic murmur, diastolic murmur, rubs, gallop, clicks GI/Abdominal exam: Present: soft, normal bowel sounds. Absent: distended, tenderness, guarding, rebound, rigid Back exam: Absent: CVA tenderness (R), CVA tenderness (L) Neurological exam: Present: alert, oriented X3, CN II-XII intact Psychiatric exam: Present: normal affect, normal mood Skin exam: Present: warm, dry, intact, normal color. Absent: rash Course Vital Signs 12/07/23 12/07/23 12/07/23 15:11 17:00 19:13 Temperature 98.2 F 98.1 F Pulse Rate 117 H 62 68 Respiratory 20 18 18 Rate Blood Pressure 117/73 163/88 126/86 O2 Sat by Pulse 99 97 97 Oximetry Medical Decision Making - Medical Decision Making Was pt. sent in by a medical professional or institution (, PA, STEAM SETTER, urgent care, hospital, or assisted...) When possible be specific @ -[No] Did you speak to anyone other than the patient for history (EMS, parent, family, police, friend...)? What history was obtained from this source @ -Patient's family member supplemented history Did you review nursing and triage notes (agree or disagree)? Why? @ -[I reviewed and agree with nursing and triage notes] Were old charts reviewed (outside hosp., previous admission, EMS record, old EKG, old radiological studies, urgent care reports/EKG's, assisted records)? Report findings @ -[No old charts were reviewed] Differential Diagnosis (chest pain, altered mental status, abdominal pain women, abdominal pain men, vaginal bleeding, weakness, fever, dyspnea, syncope, headache, dizziness, GI bleed, back pain, seizure, CVA, palpatations, mental hea lth, musculoskeletal)? @ -Differential Abdominal Pain Men: Appendicitis, cholecystitis, diverticulosis, ischemic bowel, pancreatitis, hepatitis, UTI, gastroenteritis, AAA, incarcerated hernia, bowel obstruction, constipation, inflammatory bowel, hepatitis, peptic ulcer disease, splenic infarction, perforated viscus, testicular torsion, this is not meant to be an all-inclusive list EKG interpreted by me (3pts min.). @ -None X-rays interpreted by me (1pt min.). @ -Abdominal x-ray reveals possible obstructive process versus severe ileus CT interpreted by me (1pt min.). @ -CT of abdomen pelvis reveals slightly dilated small bowel loops containing gas and fluid, rectum is packed and distended with stool up to 7.5 cm U/S interpreted by me (1pt. min.). @ -[None done] What testing was considered but not performed or refused? (CT, X-rays, U/S, labs)? Why? @ -[None] What meds were considered but not given or refused? Why? @ -Enema was ordered for constipation, however before enema was given patient had a large bowel movement and stated his pain was relieved Did you discuss the management of the patient with other professionals (professionals i.e. , PA, STEAM SETTER, lab, RT, psych nurse, social sciences lecturer, commercial teller, teacher, sanitation officer, rn case management)? Give summary @ -[No] Was smoking cessation discussed for >3mins.? @ -[No] Was critical care preformed (if so, how long)? @ -[No] Were there social determinants of health that impacted care today? How? (Homelessness, low income, unemployed, alcoholism, drug addiction, transportation, low edu. Level, literacy, decrease access to med. care, [facility], rehab)? @ -[No] Was there de-escalation of care discussed even if they declined (Discuss DNR or withdrawal of care, Hospice)? DNR status @ -[No] What co-morbidities impacted this encounter? (DM, HTN, Smoking, COPD, CAD, Cancer, CVA, ARF, Chemo, Hep., AIDS, mental health diagnosis, sleep apnea, morb id obesity)? @ -[None] Was patient admitted / discharged? Hospital course, mention meds given and ro cheikh, prescriptions, significant lab abnormalities, going to OR and other pertinent info. @ -Patient was discharged. Patient was seen and evaluated for abdominal pain/constipation for 2 weeks status post shoulder surgery 2 weeks ago. Patient's heart rate was initially 117 however decreased to normal range during course of visit. Abdominal exam is unremarkable. IV fluids were given. Abdominal x-ray reveals possible obstructive process versus severe ileus and labs remarkable for white blood count of 16.5. Due to findings, CT of abdomen was ordered and was remarkable for slightly dilated small bowel loops containing gas and fluid, rectum packed and distended with stool up to 7.5 cm. Enema was ordered for constipation, however before enema was given, patient had large bowel movement and symptoms were relieved. Discussed elevated white count likely due to stress due to constipation. Discussed supportive care at home, follow-up with PCP in 1 to 2 days. Return symptoms discussed. Patient discharged in stable condition. Case discussed with Dr. Ramirez. Undiagnosed new problem with uncertain prognosis? @ -[No] Drug Therapy requiring intensive monitoring for toxicity (Heparin, Nitro, Insulin, Cardizem)? @ -[No] Were any procedures done? @ -[No] Diagnosis/symptom? @ -Constipation Acute, or Chronic, or Acute on Chronic? @ -Acute Uncomplicated (without systemic symptoms) or Complicated (systemic symptoms)? @ -[default] Side effects of treatment? @ -[No] Exacerbation, Progression, or Severe Exacerbation? @ -[No] Poses a threat to life or bodily function? How? (Chest pain, USA, CT, pneumonia, PE, COPD, DKA, ARF, appy, cholecystitis, CVA, Diverticulitis, Homicidal, Suicidal, threat to staff... and all critical care pts) @ -[No] - Lab Data Result diagrams: 12/07/23 15:48 12/07/23 15:48 Lab Results 12/07/23 12/07/23 12/07/23 Range/Units 15:48 15:48 15:48 WBC 16.5 H (3.8-10.6) k/uL RBC 4.67 (4.30-5.90) m/uL Hgb 13.9 (13.0-17.5) gm/dL Hct 43.5 (39.0-53.0) % MCV 93.1 (80.0-100.0) fL MCH 29.7 (25.0-35.0) pg MCHC 31.9 (31.0-37.0) g/dL RDW 12.0 (11.5-15.5) % Plt Count 420 (150-450) k/uL MPV 7.9 Neutrophils % 93 % Lymphocytes % 4 % Monocytes % 3 % Eosinophils % 0 % Basophils % 0 % Neutrophils # 15.3 H (1.3-7.7) k/uL Lymphocytes # 0.6 L (1.0-4.8) k/uL Monocytes # 0.4 (0-1.0) k/uL Eosinophils # 0.1 (0-0.7) k/uL Basophils # 0.0 (0-0.2) k/uL Sodium 136 L (137-145) mmol/L Potassium 4.2 (3.5-5.1) mmol/L Chloride 104 (98-107) mmol/L Carbon Dioxide 21 L (22-30) mmol/L Anion Gap 11 mmol/L BUN 29 H (9-20) mg/dL Creatinine 0.88 (0.66-1.25) mg/dL Est GFR (CKD-EPI)AfAm >90 (>60 ml/min/1.73 sqM) Est GFR (CKD-EPI)NonAf 79 (>60 ml/min/1.73 sqM) Glucose 218 H (74-99) mg/dL Plasma Lactic Acid [place] 1.8 (0.7-2.0) mmol/L Calcium 9.4 (8.4-10.2) mg/dL Total Bilirubin 0.8 (0.2-1.3) mg/dL AST 23 (17-59) U/L ALT 16 (4-49) U/L Alkaline Phosphatase 95 (38-126) U/L Total Protein 7.4 (6.3-8.2) g/dL Albumin 4.1 (3.5-5.0) g/dL Lipase 131 (23-300) U/L Urine Color Urine Appearance (Clear) Urine pH (5.0-8.0) Ur Specific [place] (1.001-1.035) Urine Protein (Negative) Urine Glucose (UA) (Negative) Urine Ketones (Negative) Urine Blood (Negative) Urine Nitrite (Negative) Urine Bilirubin (Negative) Urine Urobilinogen (<2.0) mg/dL Ur Leukocyte Esterase (Negative) 12/07/23 Range/Units 17:28 WBC (3.8-10.6) k/uL RBC (4.30-5.90) m/uL Hgb (13.0-17.5) gm/dL Hct (39.0-53.0) % MCV (80.0-100.0) fL MCH (25.0-35.0) pg MCHC (31.0-37.0) g/dL RDW (11.5-15.5) % Plt Count (150-450) k/uL MPV Neutrophils % % Lymphocytes % % Monocytes % % Eosinophils % % Basophils % % Neutrophils # (1.3-7.7) k/uL Lymphocytes # (1.0-4.8) k/uL Monocytes # (0-1.0) k/uL Eosinophils # (0-0.7) k/uL Basophils # (0-0.2) k/uL Sodium (137-145) mmol/L Potassium (3.5-5.1) mmol/L Chloride (98-107) mmol/L Carbon Dioxide (22-30) mmol/L Anion Gap mmol/L BUN (9-20) mg/dL Creatinine (0.66-1.25) mg/dL Est GFR (CKD-EPI)AfAm (>60 ml/min/1.73 sqM) Est GFR (CKD-EPI)NonAf (>60 ml/min/1.73 sqM) Glucose (74-99) mg/dL Plasma Lactic Acid [place] (0.7-2.0) mmol/L Calcium (8.4-10.2) mg/dL Total Bilirubin (0.2-1.3) mg/dL AST (17-59) U/L ALT (4-49) U/L Alkaline Phosphatase (38-126) U/L Total Protein (6.3-8.2) g/dL Albumin (3.5-5.0) g/dL Lipase (23-300) U/L Urine Color Yellow Urine Appearance Clear (Clear) Urine pH 5.5 (5.0-8.0) Ur Specific [place] 1.032 (1.001-1.035) Urine Protein Trace H (Negative) Urine Glucose (UA) Negative (Negative) Urine Ketones 1+ H (Negative) Urine Blood Negative (Negative) Urine Nitrite Negative (Negative) Urine Bilirubin Negative (Negative) Urine Urobilinogen <2.0 (<2.0) mg/dL Ur Leukocyte Esterase Negative (Negative) Disposition Clinical Impression: Constipation Disposition: HOME SELF-CARE Condition: Stable Instructions (If sedation given, give patient instructions): Constipation (ED) Additional Instructions: Please follow-up with PCP in 1 to 3 days. Increase hydration, continue stool softeners and MiraLAX. Use opioids sparingly as they can exacerbate constipation. Please return to the Emergency Department if symptoms worsen or any other concerns. Is patient prescribed a controlled substance at d/c from ED?: No Referrals: Wily Tse MD [Primary Care Provider] - 1-2 days Time of Disposition: 18:17
[2023-12-07] MEDS: SODIUM CHLORIDE 0.9% 1,000 ML IV STA (15:48)
[2023-12-07 15:55] LABS: Basophils % (A) 0 %; Eosinophils # (A) 0.1 k/uL (0-0.7); Eosinophils % (A) 0 %; HCT 43.5 % (39.0-53.0); HGB 13.9 gm/dL (13.0-17.5); Lymphocytes # (A) 0.6 k/uL (1.0-4.8); Lymphocytes % (A) 4 %; MCH 29.7 pg (25.0-35.0); MCHC 31.9 g/dL (31.0-37.0); MCV 93.1 fL (80.0-100.0); Mean Platelet Volume 7.9; Monocytes # (A) 0.4 k/uL (0-1.0); Monocytes % (A) 3 %; Neutrophils # (A) 15.3 k/uL (1.3-7.7); Neutrophils % (A) 93 %; Platelet Count 420 k/uL (150-450); RBC 4.67 m/uL (4.30-5.90); WBC 16.5 k/uL (3.8-10.6)
[2023-12-07 16:36] LABS: ALT 16 U/L (4-49); AST 23 U/L (17-59); African American GFR (CKD) >90 (>60 ml/min/1.73 sqM); Albumin 4.1 g/dL (3.5-5.0); Alkaline Phosphatase 95 U/L (38-126); Anion Gap 11 mmol/L; Blood Urea Nitrogen 29 mg/dL (9-20); Calcium 9.4 mg/dL (8.4-10.2); Carbon Dioxide 21 mmol/L (22-30); Chloride 104 mmol/L (98-107); Glucose 218 mg/dL (74-99); Lipase 131 U/L (23-300); Non-African American GFR(CKD) 79 (>60 ml/min/1.73 sqM); Potassium 4.2 mmol/L (3.5-5.1); Sodium 136 mmol/L (137-145); Total Bilirubin 0.8 mg/dL (0.2-1.3); Total Protein 7.4 g/dL (6.3-8.2)
--- NOTE | 2023-12-07 16:54 | XR ---
EXAMINATION TYPE: XR KUB DATE OF EXAM: 12/07/2023 4:25 PM CLINICAL INDICATION:Male, 83 years old with history of abdominal pain; [facility] COMPARISON: None. TECHNIQUE: Frontal upright views of the abdomen/pelvis. FINDINGS: There appears to be some stool in the rectum, with relative dearth of stool more proximally. Mildly d istended gas-filled loops of bowel with several differential air-fluid levels noted. No pathologic ca lcifications can be seen. Degenerative changes of the spine with multilevel osteophytes. Mild S-shape d scoliosis. Mild degenerative change of the SI joints and hips. IMPRESSION: Bowel gas pattern suggests possible obstructive process, versus severe ileus.
[2023-12-07 17:36] LABS: Appearance,Urine Clear (Clear); Bilirubin,Urine Negative (Negative); Blood,Urine Negative (Negative); Color,Urine Yellow; Glucose,Urine (UA) Negative (Negative); Ketones,Urine 1+ (Negative); Leukocyte Esterase,Urine Negative (Negative); Nitrite,Urine Negative (Negative); PH, Urine 5.5 (5.0-8.0); Protein,Urine Trace (Negative); Specific Gravity,Urine 1.032 (1.001-1.035); Urobilinogen,Urine <2.0 mg/dL (<2.0)
--- NOTE | 2023-12-07 17:55 | CT ---
EXAMINATION TYPE: CT abdomen pelvis w con CT DLP: 722.4 mGycm, Automated exposure control for dose reduction was used. DATE OF EXAM: 12/07/2023 5:13 PM COMPARISON: CT 05/25/2022 CLINICAL INDICATION:Male, 83 years old with history of Abdominal pain; Abdominal pain/constipation. TECHNIQUE: Axial CT of the abdomen and pelvis. Sagittal and coronal reformats were created on a [employer] workstation. Contrast used:100 ml mL of Isovue 300 with IV Contrast, (none if empty) Oral contrast used: without Oral Contrast (none if empty) FINDINGS: LOWER CHEST: Mild bibasilar scarring or subsegmental atelectasis. Heart size upper normal. Heavy aort ic valve calcifications, mild mitral valve calcifications. Moderate to heavy calcifications of the vi sualized coronary arteries. ABDOMEN LIVER: Unremarkable GALLBLADDER AND BILE DUCTS: The gallbladder appears moderately distended with no surrounding inflamma tory changes or calcified gallstones evident. No pathologic biliary dilatation is seen. PANCREAS: Unremarkable. SPLEEN: Unremarkable. ADRENAL GLANDS: Unremarkable. KIDNEYS AND URETERS: Kidneys enhance symmetrically. Multiple various sized hypodense nodules througho ut both kidneys, most too small to characterize, but most likely cysts. Stable left renal calcificati on, may be vascular. No ureteral calculi or hydronephrosis. PELVIS BLADDER: Moderately distended REPRODUCTIVE: Prostate appears enlarged measuring 5.3 x 3.2 cm, and contains a couple coarse adjacent calcifications in the central parenchyma. There is mild indentation on the adjacent bladder base. ABDOMEN & PELVIS STOMACH AND BOWEL: Stomach and duodenum are nondistended. Continuing distally, there is slight progre ssion in the diameter of small bowel loops which contain gas and fluid. The more distal small bowel l oops appear decompressed. A distinct transition point is not seen. The appendix is believed to be se en as a gas-filled structure in the right lower quadrant without surrounding inflammatory change. Th e colon demonstrates largely fluid contents throughout the colon mixed with gas. A few diverticula ar e suggested without sign of diverticulitis. Distally the rectum is packed and distended with stool up to 7.5 cm diameter.. PERITONEUM/RETROPERITONEUM: No evidence of pneumoperitoneum or free fluid. VASCULATURE: Moderate atherosclerotic calcifications are present throughout the abdominal aorta and i ts branches. No evidence of aortic aneurysm. Portal veins, SMV, splenic vein appear patent. LYMPH NODES: No enlarged nodes by CT size criteria. SOFT TISSUE/ABDOMINAL WALL: Unremarkable for acute process. There is suture material seen in the ante rior abdominal muscular wall. MUSCULOSKELETAL: No acute osseous abnormalities. Moderate disc degeneration changes are present throu ghout the thoracolumbar spine. Redemonstration severe compression deformity L1 with partial interbod y fusion with T12. IMPRESSION: 1. No acute abnormality demonstrated to explain the patient's symptoms. 2. Heavy aortic and mild mitral valve calcifications. Moderate to heavy calcifications of the visual ized coronary arteries. 3. Gallbladder appears moderately distended with no surrounding inflammatory changes or calcified ga llstones evident. 4. Bilateral renal hypodense nodules, likely cysts. Small left renal calcifications unchanged. 5. Bladder is moderately distended. Prostate appears enlarged. 6. Slightly dilated mid small bowel loops which contain gas and fluid. The more distal small bowel l oops appear decompressed. A distinct transition point is not seen. Consider enteritis or ileus. 7. Colon demonstrates largely fluid contents throughout the colon mixed with gas. Distally the rectu m is packed and distended with stool up to 7.5 cm diameter. Correlate for constipation/impaction and acute diarrheal illness.
[2023-12-07 18:22] VITALS: RESP 18
[2023-12-07 19:39] VITALS: BP 126/86; PULSE 68; TEMP 98.1
== END 2023-12-07 19:14 | disposition home or self-care (01) ==
LOC: EC 15:01
DX: K59.00 Constipation, unspecified (principal); K82.8 Other specified diseases of gallbladder
CPT/HCPCS: 99284 ×2; 96360 ×2; 96361 ×2; 36415; 80053; 83605; 83690; 85025; 81003; 74018; 74177; Q9967

== ENCOUNTER → 2024-01-23 | Outpatient (CLI) | payer MEDICARE ==
--- NOTE | 2024-01-24 16:43 | XR ---
EXAMINATION TYPE: XR cervical spine limited DATE OF EXAM: 01/23/2024 3:51 PM CLINICAL INDICATION:Male, 83 years old with history of M54.2 NECK PAIN; [facility] COMPARISON: None TECHNIQUE: The cervical spine was imaged in frontal, lateral, and odontoid. FINDINGS: The osseous structures show normal alignment without evidence of an acute fracture. 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 There are osteophytes noted throughout the cervical spine on the anterior and la teral aspects of the vertebral bodies. The intervertebral disk spaces are narrowed at multiple levels Pedicles are intact. Soft tissues are within normal limits. The odontoid appears intact. Atheroscle rosis of the aortic arch. Nuchal ligament desiccation present. IMPRESSION: 1. No fracture or dislocation. 2. 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
== END | disposition home or self-care (01) ==
LOC: RADXRMAIN 15:37
PROVIDERS: ATTEND Family Medicine
DX: M50.30 Other cervical disc degeneration, unspecified cervical region (principal)
CPT/HCPCS: 72040